=== PATIENT | male | born 1995 | race Caucasian/White ===

== ENCOUNTER 2021-05-02 15:37 | Outpatient (CLI) | payer BC, SELFPAY ==
--- NOTE | ~2021-05-02 | US_ITS ---
EXAMINATION: US venous doppler [facility] DATE: 05/02/2021 16:25 INDICATION: Left lower limb swelling and numbness TECHNIQUE: La scale images without and with compression and Doppler images of the left lower extrem ity veins were obtained. COMPARISON: None FINDINGS: The left common femoral vein, profunda femoral vein, femoral vein, popliteal vein, peroneal trunk, posterior tibial veins, and greater saphenous vein are patent. IMPRESSION: 1. Patent left lower extremity veins. No evidence of deep venous thrombosis. Reviewed, dictated and finalized at location A.
== END 2021-05-02 15:38 | disposition home or self-care (01) ==
LOC: ANHIMG 15:41
DX: M79.89 Other specified soft tissue disorders (principal)
CPT/HCPCS: 93971

== ENCOUNTER 2021-05-11 18:00 | Emergency (ER) | payer BC, SELFPAY ==
[2021-05-11 18:05] VITALS: BP 127/86; PULSE 95; RESP 16; TEMP 37.2; O2SAT 99
--- NOTE | 2021-05-11 18:32 | ED.GENADULT ---
HPI - General Adult General Chief complaint: Extremity Problem,Nontraumatic Stated complaint: Possible DVT L Leg Time Seen by Provider: 05/11/21 18:32 History of Present Illness HPI narrative: Patient is a 25-year-old male who comes to the ED today with concerns for DVT and has left calf. Patient reports that he has had numbness in his left foot and lower leg for the last 6 weeks. Reports that he has no movement in his left toes and left ankle for the last 6 weeks. He is wearing a walking boot. He says he is having muscle wasting of his left calf. He has been seen by several specialists, had numerous MRIs done. He is found to have a contusion on his brain but is still not for sure what is causing his paralysis of his distal left lower extremity. Reports that over the last few days he has had worsening pain in his left calf area and feels like his foot is becoming swollen and more painful. He was recommended to come to the emergency room for DVT rule out by his PCP. No other symptoms or concerns. Related Data Allergies Allergy/AdvReac Type Severity Reaction Status Date / Time Sulfa (Sulfonamide Allergy Unknown Verified 09/29/13 16:08 Antibiotics) No Known Allergies Allergy Verified 12/20/18 11:47 Review of Systems Constitutional: Constitutional: Reports as per HPI, Denies fever(s), Denies night sweats and Denies weakness Cardiovascular: Cardiovascular: Denies chest pain, Denies edema, Denies leg edema, Denies dyspnea and Denies orthopnea Respiratory: Respiratory: Denies cough and Denies dyspnea Gastrointestinal: Gastrointestinal: Denies abdominal pain, Denies constipation, Denies diarrhea, Denies nausea and Denies vomiting Musculoskeletal: Musculoskeletal: Denies abnormal gait, Denies back pain, Denies numbness and Denies tingling Comments: See HPI. Neurologic: Denies Abnormal speech present, Denies abnormal gait, Denies numbness, Denies tingling and Denies weakness Psychiatric: Psychiatric: Denies homicidal ideation and Denies suicidal ideation [facility] Family History Family History (Updated 07/08/14 @ 07:13 by DOCTOR UNKNOWN) Grandparent Hypertension Family history of heart disease in male family member before age 55 Social History Social History Smoking status: Smoker, status unknown Alcohol intake: never Exam Const: General: cooperative, healthy appearing, comfortable, no acute distress, well developed, alert, awake and Physically active Orientation/consciousness: patient oriented x3 HENMT: Head: normal to inspection, normocephalic and atraumatic Ears: external ears normal General nose exam: Normal external nose present Eyes: Pupils: Equal, round and reactive pupils present EOM: EOMs intact bilaterally Neck: Neck: normal visual inspection Chest: Chest palpation & inspection: normal inspection of the chest and no tenderness Resp: Effort & Inspection: normal respiratory effort and able to speak in complete sentences Auscultation: clear to auscultation bilaterally Cardio: Rate: regular rate Rhythm: regular rhythm GI: Inspection: normal to inspection GI Palp: No abdominal tenderness : General: Yes no CVA tenderness Back/Spine/Pelvis: Back: no CVA tenderness Skin: General skin exam: normal color and no rashes or lesions noted Lesions: no lesions Other: Left lower extremity is normal temperature to touch. No overlying skin changes. Neuro: General: patient oriented x3, No no focal motor deficits (Focal deficits/paralysis of left ankle and foot.), CN's II-XI intact bilaterally and other ( significantly reduced sensation over left lower extremity distal to knee) Cranial nerves: Yes Equal, round and reactive pupils present Cognition (Neuro): normal cognition Speech: No Abnormal speech present Extrem: General: normal to inspection and full ROM Other: Tender to palpate over left calf and posterior left knee. Trace nonpitting edema in left foot. Muscle atrophy of the left calf compare
[2021-05-11 19:42] LABS: D Dimer 0.27 ug/mL (<0.48)
== END 2021-05-11 20:14 | disposition home or self-care (01) ==
PROVIDERS: Physician Assistant Medical; Emergency Provider Emergency Medicine; PCP Physician Assistant
DX: M79.662 Pain in left lower leg (principal)
CPT/HCPCS: 36415; 85380; 99283

== ENCOUNTER 2021-06-27 11:00 | Outpatient (RCR) | payer BC, SELFPAY ==
--- NOTE | 2021-05-03 14:57 | PTOPEVAL ---
Thank you for referring Abelardo Giron to [facility].? The patient is scheduled to be seen for therapy? 1-2 x/week for 8 weeks. Please review, sign, date and return this plan of care ROM. I agree with and certify that the following plan of care is medically necessary. 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 noted to have entraped peroneal nerve on left Subjective Information He was staying in a hotel. He Query Text:As Reported By Patient/ starting experiencing sickness Family with in vomiting 6 times. He lost his job and became very stressed. He woke up with left foot asleep with progression of numbness with pins/needles that progressed from foot to upper leg. He went to hospital due to weakness. He was given a walking boot due to weakness. He has been in/out of hospitals, doctors and testing since February. He states he has not moved his left ankle since February. He c/ o increased pain of right LE. Pain Assessment Timing of Pain Assessment Timing of Pain Assessment Assessment Pain Scale Pain Scale Used Numeric (1 - 10) Self Report Pain Assessment Left Leg(s) Reported Pain Level 8 Pain Description Numbness Pain Frequency Continuous Lowest Pain Intensity 8 Greatest Pain Intensity 9 Pain Aggravating Factors ADL's,Palpation,Prolonged Position,Sitting,Walking, Weight Bearing/Standing Pain Score Pain Score 8: Self Report Interventions Used Interventions Used By Clinicians Education Lower Extremity Muscle Strength Testing General Lower Extremity Strength Gross Lower Extremity Strength right hip ext: 3/5, hip abd: 3 /5 Hip Strength Left Hip Flexion Strength 4+ Good + Hip Extension Strength 2+ Poor + Hip Abduction Strength 2 Poor Hip Adduction Strength 2+ Poor + Knee Strength Left Knee Flexion Strength 1 Trace Knee Extension Strength
--- NOTE | 2021-05-22 12:25 | PCPTNOTE ---
Patient did not show up for scheduled appointment this date. Attempted to call pt, but number on file is not a working number.
--- NOTE | 2021-05-29 12:01 | PCPTNOTE ---
Patient called & cancelled scheduled appointment this date due to unknown reason.
--- NOTE | 2021-06-05 10:01 | PCPTNOTE ---
Patient called & cancelled scheduled appointment this date due to no reason provided.
--- NOTE | 2021-06-09 12:28 | PCPTNOTE ---
Patient did not show up for scheduled appointment this date. Attempted to call pt, but his phone is not activated. This is his 2nd NS, but 4th missed visit. Will plan to DC per policy.
--- NOTE | 2021-06-27 12:12 | PTOPEVAL ---
Physical Therapy Discharge Note Thank you for referring Abelardo Giron to [facility] [place]Note 2[place]?He has been seen for 4 therapy visits from 05/03/21 to 06/27/21 with 4 no show/cancelled visits. He has been provided with a new medical condition which will require surgery in 2 weeks. His has a brace for his leg and demonstrates indep with a HEP. No additional skilled therapy services required at this time due to surgery planned. Please review, sign, date and return this discharge summary ROM. I agree with and certify that the following plan of care is medically necessary. 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 Surgery planned for 07/11/21. 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 He is performing ankle exerises and walking as tolerated. Pain Assessment Left Leg(s) Reported Pain Level 5 Pain Description Aching,Numbness,Sharp,Shooting Pain Frequency Continuous Greatest Pain Intensity 6 Lower Extremity Range of Motion General Lower Extremity Range of Motion Gross Lower Extremity Range of Motion passive left ankle DF: neutral Comments Lower Extremity Muscle Strength Testing Hip Strength Left Hip Flexion Strength 4+ Good + Hip Extension Strength 3+ Fair + Hip Abduction Strength 3- Fair - Hip Adduction Strength 3- Fair - Knee Strength Left Knee Flexion Strength 4- Good - Knee Extension Strength 4 Good Ankle Strength Left Ankle Dorsiflexion Strength 0 Zero Ankle Plantarflexion Strength 2- Poor - Ankle Eversion Strength 1 Trace Ankle Inversion Strength 1 Trace Toe Strength Comments great toe ext: 1/5 toe flex: 2-/5 Gait Assessment Gait Pattern Assessment Gait Pattern Steppage Gait,Trendelenburg Gait Gait Pattern Observed Decreased Stride Length - Right,No Heel Strike
== END 2021-06-27 16:09 | disposition home or self-care (01) ==
LOC: ANHPT 11:00
DX: M62.50 Muscle wasting and atrophy, not elsewhere classified, unspecified site (principal); M21.372 Foot drop, left foot; R29.898 Other symptoms and signs involving the musculoskeletal system
CPT/HCPCS: 97110; 97112; 97163

== ENCOUNTER → 2021-07-08 01:09 | Outpatient (CLI) | payer BC, SELFPAY ==
[2021-07-08 22:46] LABS: SARS-CoV-2 RNA PCR Negative
== END ==
PROVIDERS: PCP Physician Assistant
DX: Z01.812 Encounter for preprocedural laboratory examination (principal); Z20.822 Contact with and (suspected) exposure to COVID-19
CPT/HCPCS: C9803; U0003; U0005

== ENCOUNTER 2021-07-21 08:04 | Emergency (ER) | payer BC, SELFPAY ==
--- NOTE | ~2021-07-21 | CT_ITS ---
EXAMINATION: CT brain wo con DATE: 07/21/2021 09:31 INDICATION: Headache. TECHNIQUE: Computed tomography (CT) of the head was performed without intravenous contrast. The mA wa s adjusted according to patient size. Iterative reconstruction technique was employed. The dose-lengt h product was 605.33 mGy-cm. COMPARISON: None FINDINGS: There are changes of left frontal craniotomy. There is extra-axial fluid and a small focus of gas deep to the craniotomy with maximum thickness of 6 mm. There is soft tissue swelling overlying the craniotomy. There is subacute versus chronic encephalomalacia in left frontal lobe deep to the c raniotomy. There is no intracranial hemorrhage, acute infarction, or abnormal intracranial mass lesio n. The ventricles are normal in size. The paranasal sinuses are clear. The mastoid air cells are norm al. The orbits are normal. IMPRESSION: 1. 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 2. Recent left frontal craniotomy with extra-axial fluid and a small focus of gas deep to the craniot paloma with maximum thickness of 6 mm, which may be the normal postoperative appearance. Reviewed, dictated and finalized at location A. IMPRESSION: 1. 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 2. Recent left frontal craniotomy with extra-axial fluid and a small focus of g as deep to the craniotomy with maximum thickness of 6 mm, which may be the norm al postoperative appearance.
[2021-07-21 08:19] VITALS: BP 126/79; PULSE 96; RESP 18; TEMP 36.7; O2SAT 96
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
--- NOTE | 2021-07-21 08:58 | PC.NURSE ---
Pt mother Mary arrived to ED. Mother states that pt has had a hx of drug abuse in past and hx of being violent. Pts mother states that last week pt took prescribed mediations at home and went into respiratory distress and had CPR preformed and given Narcan. Pts mother states that Drs said that the medications that pt is taking it made his breathing decline. Pts mother has since taken medications and locked them up. This is what pts mother thinks pt was trying to get at this morning. Pts mother can be reached at [phone]
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
[2021-07-21 09:36] LABS: Add Urine Microscopic? NO; Appearance Urine Clear (Clear); Bilirubin Urine Negative (Negative); Blood Urine Negative (Negative); Color Urine Yellow (Yellow); Glucose Urine UA Negative (Negative); Ketones Urine Negative (Negative); Leukocyte Esterase Ur Negative LEU/UL (Negative); Nitrate Urine Negative (Negative); Protein Urine Negative (Negative); Specific Grav Ur 1.019 (1.001-1.035); Urobilinogen Urine Negative mg/dL (<2.0)
[2021-07-21 09:41] LABS: Basophils Absolute Auto 0.1 K/mm3 (0.0-0.1); Basophils Percent Auto 0.5 % (0.2-1.2); Eosinophils Absolute Auto 0.4 K/mm3 (0-0.3); Eosinophils Percent Auto 2.4 % (0-4.4); Hematocrit 41.1 % (42.0-52.0); Hemoglobin 13.8 g/dL (14.0-18.0); Immature Granulocyte Absolute 0.41 K/mm3 (0.00-0.031); Immature Granulocyte Percent A 2.4 % (0-0.5); Lymphocytes Absolute Auto 2.19 K/mm3 (0.9-3.2); Lymphocytes Percent Auto 12.6 % (18.3-44.2); Mean Corpuscular HGB Conc 33.6 g/dl (32-36); Mean Corpuscular Hemoglobin 31.7 pg (26-34); Mean Corpuscular Volume 94.3 fl (80-100); Mean Platelet Volume 8.9 fl (7.4-10.4); Monocytes Percent Auto 11.8 % (2.6-8.5); Neutrophils Absolute Auto 12.2 K/mm3 (1.3-6.7); Neutrophils Percent Auto 70.3 % (45.5-73.1); Platelet Count Result 363 k/mm3 (150-375); Red Blood Count 4.36 M/mm3 (4.6-6.20); Red Cell Distribution Width 12.5 % (11.5-14.5); White Blood Count 17.3 K/mm3 (4.5-10.0)
[2021-07-21 09:54] LABS: Alanine Aminotransferase 45 U/L (4-50); Albumin Level 3.8 g/dL (3.5-5.1); Alkaline Phosphatase 83 U/L (38-126); Anion Gap 3 mmol/L (8-16); Aspartate Amino Transferase 44 U/L (17-59); Bilirubin,Total 0.1 mg/dL (0.2-1.3); Blood Urea Nitrogen 19 mg/dL (9-20); Calcium 9.1 mg/dL (8.4-10.2); Carbon Dioxide 30 mmol/L (22-30); Chloride 105 mmol/L (98-107); Estimated CRCL calculation 129 ml/min; Estimated Glomerular Filt Rate > 60; Glucose 112 mg/dL (65-110); Potassium 4.5 mmol/L (3.4-5.0); Sodium 138 mmol/L (137-145)
[2021-07-21 09:55] LABS: Ethanol < 10 mg/dL (<10)
[2021-07-21 10:07] LABS: Amphetamine Screen Urine Negative (Negative); Barbiturate Screen Urine Negative (Negative); Benzodiazepines Screen Urine Negative (Negative); Cannabinoid Screen Urine Positive (Negative); Cocaine Screen Urine Negative (Negative); Methadone Screen Urine Negative (Negative); Opiate Screen Urine Positive (Negative); Phencyclidine Screen Urine Negative (Negative)
[2021-07-21 10:23] LABS: EDCOVIDSCREEN Negative (Negative)
[2021-07-21] MEDS: HYDROcodone/acetaminophen (*CRX) 5-325 MG TABLET 2 TAB PO (10:40)
--- NOTE | 2021-07-21 10:46 | PC.NURSE ---
Pt in room yelling at this RN because he is needing his pain meds and it has taken over an hour what the fuck is this [employer] ? Pt given his medication and water
--- NOTE | 2021-07-21 11:25 | PC.NURSE ---
Pts mother called and states that she was talking to pts expressive art therapist Dr. Archana Wong @ [phone] Wong if pt can be transferred to her facility they will take pt and keep him for treatment and physiatric help. Will inform of this.
--- NOTE | 2021-07-21 12:28 | PC.NURSE ---
Pt is medically cleared. Crisis called and spoke with Brooke. Brooke states she will contact Delisa and have her come out.
--- NOTE | 2021-07-21 12:35 | PC.NURSE ---
Per Dr. Fuentes, Dr Archana Wong has only spoken with pt 1 time. She had no idea how her name was mentioned today. Dr. Wong states she never said to have pt transferred to [place].
[2021-07-21] MEDS: LORazepam (*CRX) 1 MG TABLET PO (14:39)
--- NOTE | 2021-07-21 15:09 | PC.NURSE ---
Called to inform pts mother Mary that pt did not meet qualifications to be placed somewhere and that he will need to be picked up. Mother states i will need a minute, I will call you back . Informed the charge nurse of this.
== END 2021-07-21 15:21 | disposition home or self-care (01) ==
PROVIDERS: Emergency Provider Emergency Medicine
DX: F32.9 Major depressive disorder, single episode, unspecified (principal); F41.9 Anxiety disorder, unspecified; Z98.890 Other specified postprocedural states; Z20.822 Contact with and (suspected) exposure to COVID-19
CPT/HCPCS: 36415; 70450; 80053; 80307; 81003; 84443; 85025; 87426; 99284; A9270; C9803

== ENCOUNTER 2021-08-24 08:24 | Outpatient (CLI) | payer BC, SELFPAY ==
--- NOTE | ~2021-08-24 | MR_ITS ---
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 7 weeks postop with persistent pain. TECHNIQUE: Magnetic resonance imaging (MRI) of the brain/brain stem obtained without contrast. Sagit soren T1, axial diffusion, gradient echo (T2*), T1, T2, FLAIR sequences obtained. Patient was then inj ected with 14 cc intravenous Multihance contrast. Axial and coronal postcontrast T1 weighted sequence s obtained. Correlation is made to head CT 07/21/2011. FINDINGS: Meghan have likely been removed overlying the left frontal craniotomy. There is presumed s urgical defect in the left frontal lobe which is T2 hyperintense, does not demonstrate restricted dif fusion. The surrounding margins of the surgical bed is T1 hyperintense, gradient echo hypointense con sistent with surgical postoperative margin. This also demonstrates enhancement. No discrete nodularit y to this enhancing region. There is mild vasogenic edema within the white matter surrounding this. Otherwise, normal brain signal intensity. Flow voids are seen in the cerebral arteries on the T2 weig hted sequences consistent with their expected patency. No obstructive hydrocephalus or extra-axial co llections. There is mild to moderate left maxillary sinus mucoperiosteal thickening. No acute infarct ion. IMPRESSION: Left frontal craniotomy, underlying encephalomalacia with expected postoperative appearan ce. No focal enhancing nodularity along the resection bed. Follow-up as indicated clinically. Reviewed, dictated and finalized at location A. IMPRESSION: Left frontal craniotomy, underlying encephalomalacia with expected postoperative appearance. No focal enhancing nodularity along the resection bed . Follow-up as indicated clinically.
[2021-08-24 09:01] LABS: Estimated Glomerular Filt Rate > 60
== END 2021-08-24 08:25 | disposition home or self-care (01) ==
LOC: ANHIMG 08:25
PROVIDERS: PCP Physician Assistant; Visit Provider Physician Assistant
DX: C71.1 Malignant neoplasm of frontal lobe (principal); Z98.890 Other specified postprocedural states
CPT/HCPCS: 70553; A9577

== ENCOUNTER 2021-09-20 15:00 | Outpatient (RCR) | payer BC, SELFPAY ==
--- NOTE | 2021-08-16 13:41 | OTOPEVAL ---
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 OT evaluation shows intact and symmetrical UE strength and coordination. Visual assessment is WNL. He is currently independent with ADLs. No further skilled OT is indicated at this time. Thank you for referring Abelardo Giron to [facility].? Please review, sign, date and return this D/C Note ROM. I agree with and certify that the following plan of care is medically necessary. Referring Physician Date Referring Provider: AMISH GallardoOT Outpatient Evaluation Start: 08/16/21 12:27 Therapy Assessment Status Assessment Status Assessment Status Evaluation Outpatient Past Medical History Neurological History Hx Other Neurological Disorders Yes: brain tumor s/p resection Cardiovascular History Hx Cardiac Disorders No Significant History Respiratory History Hx Respiratory Disorders No Significant History Gastrointestinal History Hx Gastrointestinal Disorders No Significant History Genitourinary History Hx Genitourinary Disorders No Significant History Musculoskeletal History Hx Musculoskeletal Disorders No Significant History Hematological History Hx Hematological Disorders No Significant History Endocrine History Hx Endocrine Disorders No Significant History HEENT History Hx HEENT Disorders No Significant History Integumentary History Hx Skin Disorders No Significant History Reproductive History Hx Reproductive Disorders No Significant History Psychosocial History Hx Anxiety Yes Hx Depression Yes Pain History History of Any Previous or Ongoing No Significant History Instance of Pain Anesthesia History Hx Anesthesia Reactions No Significant History Other History Hx Cancer Yes Evaluation Information Problem Diagnosis Brain lesion Additional Evaluation Detail 07/11/21 - Resection of malignant neoplasm of the left frontal lobe Subjective Information Patient reports difficulties Query Text:As Reported By Patient/ with left leg weakness that Family began at the beginning of summer when he had a 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 He reports his neurologist doesn't think the brain tumor is related to the LE weakness, but imaging and testing has been unable to properly diagnose. He is to be
--- NOTE | 2021-08-17 16:14 | PTOPEVAL ---
Thank you for referring Abelardo Giron to [facility].? The patient is scheduled to be seen for therapy? 1 x/week for 4 weeks. Please review, sign, date and return this plan of care ROM. I agree with and certify that the following plan of care is medically necessary. Referring Physician Date Referring Provider: Idalmis Jamison NP Outpatient Past Medical History Past Medical History Source of Past Medical History Patient Neurological History Hx Seizures Yes Hx Other Neurological Disorders Yes: brain tumor s/p resection 07/11/21 Psychosocial History Hx Anxiety Yes Hx Depression Yes Hx Cancer Yes Evaluation Information Diagnosis Brain lesion Additional Evaluation Detail 07/11/21 - Resection of malignant neoplasm of the left frontal lobe He is to begin radiation therapy in a few weeks. Pt has been having seizures since his sugery. he wears 1.5# on left LE. Pt is applying for disability due to limitations. Subjective Information Patient reports difficulties Query Text:As Reported By Patient/ with left leg weakness that Family began at the beginning of summer when he had a particularly hard day at work. 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 He reports his neurologist doesn't think the brain tumor is related to the LE weakness, but imaging and testing has been unable to properly diagnose. He reports continued LE weakness and balance issues that seem to be greater since surgery. Reports 5-6 falls since surgery. He is not consistently wearing his brace . He reports continued nerve symptoms of left LE. Pain Assessment Head Reported Pain Level 6 Pain Description Aching Left Knee(s) Reported Pain Level 6 Pain Description Tightness Cervical and Lumbar ROM Lumbar ROM Lumbar Flexion Active Mid Nava:Hands to:
--- NOTE | 2021-08-23 13:08 | PCPTNOTE ---
Patient did not show up for scheduled appointment this date. Called & spoke with Abelardo, he stated he thought his appointment was tomorrow. patient was scheduled for 09/01/21.
--- NOTE | 2021-09-12 11:22 | PCPTNOTE ---
Patient did not show up for scheduled appointment this date. Called and left message on VM. No additional visits scheduled. Will plan to DC if he does not call this week for a f/u visit.
--- NOTE | 2021-09-20 16:12 | PTOPEVAL ---
Physical therapy discharge summary Thank you for referring Abelardo Giron to [facility] See information below for updated objective information and summary of progress. Will DC skilled therapy services at this time. Please review, sign, date and return this discharge summary ROM. I agree with and certify that the following plan of care is medically necessary. 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 Pt has been having seizures since his sugery. he wears 1.5# on left LE. Pt is applying for disability due to limitations. Subjective Information Patient reports continued Query Text:As Reported By Patient/ weakness of left LE with Family muscle mass of left LE. He is wearing his AFO on left LE, but does not feel like it is fitting properly. Reports had 1 fall since starting therapy. He tripped over a toy he did not feel on the ground. He is wearing the brace other than sleeping. He has been working on his HEP and balance activities. He does feel his balance is better. HE continues to have nerve pain from thigh to foot region . Pain Assessment Head Reported Pain Level 5 Pain Description Aching Left Knee(s) Reported Pain Level 5 Lowest Pain Intensity 5 Greatest Pain Intensity 5 Lower Extremity Muscle Strength Testing Hip Strength Left Hip Flexion Strength 4 Good Hip Extension Strength 4 Good Hip Abduction Strength 3 Fair Knee Strength Left Knee Flexion Strength 4- Good - Knee Extension Strength 5 Normal Ankle Strength Left Ankle Dorsiflexion Strength 0 Zero Ankle Plantarflexion Strength 2- Poor - Ankle Eversion Strength 0 Zero Ankle Inversion Strength 1 Trace Toe Strength Comments toe flex ext 2-/5 Balance Assessment Samaniego Balance Assessment SAMANIEGO Balance Evaluation Total Score (50/56 points) Comments schafer
== END 2021-09-21 09:34 | disposition home or self-care (01) ==
LOC: ANHPT 15:00
PROVIDERS: PCP Physician Assistant
DX: R29.898 Other symptoms and signs involving the musculoskeletal system (principal); G93.9 Disorder of brain, unspecified
CPT/HCPCS: 97110; 97112; 97116; 97163; 97166

== ENCOUNTER 2021-10-02 10:24 | Outpatient (CLI) | payer BC, SELFPAY ==
--- NOTE | 2021-10-02 12:12 | P.NEURO_ITS ---
Neurology EEG Report General Information Date of Study: 10/02/21 TEST EEG DIAGNOSIS transient alteration in alertness CONDITION OF RECORDING awake drowsy and sleep EEG NUMBER [id number] CLINICAL HISTORY patient reported he had a brain tumor removed of frontal lobe about 3 months ago he has been experiencing episodes of spacing out for a few seconds at a time and 1 episode last week of being unable to talk or move that lasted for about 2 minutes EEG DESCRIPTION basic resting occipital frequency consists of large amount of well-organized medium voltage 10 to 11 hertz per 2nd alpha admixed with minimal amount of low- voltage 15 to 18 hertz per 2nd beta. Bilateral symmetrical sleep activity seen during sleep. Intermittent medium voltage 5 to 7 hertz per 2nd theta activity seen towards the latter portion of the tracing. Photic stimulation produced normal drive. Hyperventilation not done. IMPRESSION Only minimally abnormal record due to the presence of intermittent theta and delta activity noted posteriorly during sleep. This abnormality could be suggestive of underlying organic a metabolic encephalopathy her focal structural lesion but there is no evidence of seizure discharge throughout the tracing
== END 2021-10-02 10:25 | disposition home or self-care (01) ==
LOC: ANHNEURO 10:30
PROVIDERS: PCP Physician Assistant
DX: R40.4 Transient alteration of awareness (principal); R94.01 Abnormal electroencephalogram [EEG]
CPT/HCPCS: 95816

== ENCOUNTER 2021-10-10 12:38 | Outpatient (CLI) | payer BC, SELFPAY ==
--- NOTE | ~2021-10-10 | MR_ITS ---
EXAMINATION: MR femur LT wo/w con DATE: 10/10/2021 14:08 INDICATION: Left leg weakness TECHNIQUE: Magnetic resonance imaging (MRI) of the left thigh/femur was performed without intravenous contrast. Sequences included axial, sagittal and coronal T1-weighted FSE and fluid sensitive FSE STI R, axial T1-weighted FS FSE and post contrast axial and coronal T1-weighted FS FSE were also obtained . The contralateral right thigh is included on the coronal images. COMPARISON: None. FINDINGS: There is increased muscle T2 signal involving the biceps femoris, semitendinosus, semimembranosus mus cles and geographic region (hamstring portion) of the posterior adductor mallory muscle. This correspo nds to the innervation distribution of the tibial portion of the sciatic nerve. No associated fatty a trophy. Remaining musculature is normal. Normal bone marrow signal throughout. No left hip or knee aruna int effusion. The tibial and fibular components of the sciatic nerve can be visualized as separate st ructures proximal to the level of the ischial tuberosity above which visualization is limited by fiel d artifact at the margin of the field of imaging. No abnormalities identified along the course of the nerves. The vasculature of the thighs appear normal and normally opacified with contrast. No abnorma lly enhancing masses or lesions identified. IMPRESSION: 1. 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 Reviewed, dictated and finalized at location A. AND TRIMMER IMPRESSION: 1. Diffuse increased muscular signal of the semitendinosus, semimembranosus, bi ceps humerus and hamstring portion of the abductor mallory muscle suggesting toro ropathy in the tibial portion of the sciatic nerve which is of indeterminate et iology.
[2021-10-10 13:11] LABS: Estimated Glomerular Filt Rate > 60
== END 2021-10-10 12:39 | disposition home or self-care (01) ==
PROVIDERS: PCP Physician Assistant
DX: M62.50 Muscle wasting and atrophy, not elsewhere classified, unspecified site (principal); R29.898 Other symptoms and signs involving the musculoskeletal system; M21.372 Foot drop, left foot; R93.7 Abnormal findings on diagnostic imaging of other parts of musculoskeletal system
CPT/HCPCS: 73720; A9577

== ENCOUNTER 2021-11-30 13:40 | Outpatient (CLI) | payer BC, SELFPAY ==
[2021-11-30 14:16] LABS: Basophils Absolute Auto 0.1 K/mm3 (0.0-0.1); Basophils Percent Auto 1.3 % (0.2-1.2); Eosinophils Absolute Auto 0.4 K/mm3 (0-0.3); Eosinophils Percent Auto 4.4 % (0-4.4); Hematocrit 46.8 % (42.0-52.0); Hemoglobin 16.2 g/dL (14.0-18.0); Immature Granulocyte Absolute 0.01 K/mm3 (0.00-0.031); Immature Granulocyte Percent A 0.1 % (0-0.5); Lymphocytes Absolute Auto 3.21 K/mm3 (0.9-3.2); Lymphocytes Percent Auto 34.4 % (18.3-44.2); Mean Corpuscular HGB Conc 34.6 g/dl (32-36); Mean Corpuscular Hemoglobin 31.6 pg (26-34); Mean Corpuscular Volume 91.2 fl (80-100); Mean Platelet Volume 9.5 fl (7.4-10.4); Monocytes Absolute Auto 0.7 K/mm3 (0.1-0.6); Monocytes Percent Auto 7.4 % (2.6-8.5); Neutrophils Absolute Auto 4.9 K/mm3 (1.3-6.7); Neutrophils Percent Auto 52.4 % (45.5-73.1); Platelet Count Result 311 k/mm3 (150-375); Red Blood Count 5.13 M/mm3 (4.6-6.20); Red Cell Distribution Width 11.8 % (11.5-14.5); White Blood Count 9.3 K/mm3 (4.5-10.0)
[2021-11-30 21:03] LABS: IFOB Positive Control Positive; Immunochemical Fecal Occult Bl Negative (N)
== END 2021-11-30 13:41 | disposition home or self-care (01) ==
LOC: ANHLAB 13:46
PROVIDERS: PCP Physician Assistant
DX: R10.84 Generalized abdominal pain (principal); R19.5 Other fecal abnormalities
CPT/HCPCS: 36415; 82274; 85025

== ENCOUNTER 2021-12-01 12:43 | Outpatient (CLI) | payer BC, SELFPAY ==
--- NOTE | ~2021-12-01 | MR_ITS ---
EXAMINATION: MR brain/brain stem wo/w con EXAM DATE: 12/01/2021 14:10 INDICATION: Oligodendroglioma. TECHNIQUE: Magnetic resonance imaging (MRI) of the brain/brain stem obtained without contrast. Sagit soren T1, axial diffusion, gradient echo (T2*), T1, T2, FLAIR sequences obtained. Patient was then inj ected with 14 cc intravenous Multihance contrast. Axial and coronal postcontrast T1 weighted sequence s obtained. Comparison is made to prior examination from 08/24/2021. FINDINGS: Left frontal craniotomy. There is presumed surgical defect in the left frontal lobe which i s T2 hyperintense, does not demonstrate restricted diffusion. The surrounding margins of the surgical bed is T1 hyperintense, gradient echo hypointense consistent with surgical postoperative margin with mild surrounding vasogenic edema. This also demonstrates enhancement without discrete nodularity. St able appearance. Otherwise, normal brain signal intensity. Flow voids are seen in the cerebral arteries on the T2 weig hted sequences consistent with their expected patency. No obstructive hydrocephalus or extra-axial co llections. There is mild to moderate left maxillary sinus mucoperiosteal thickening. No acute infarct ion. IMPRESSION: Stable left frontal lobe surgical resection site appearance. Reviewed, dictated and finalized at location B. ER [place]
[2021-12-01 13:44] LABS: Estimated Glomerular Filt Rate > 60
== END 2021-12-01 12:44 | disposition home or self-care (01) ==
LOC: ANHIMG 12:44
PROVIDERS: PCP Physician Assistant; Visit Provider Internal Medicine
DX: C71.9 Malignant neoplasm of brain, unspecified (principal); Z98.890 Other specified postprocedural states
CPT/HCPCS: 70553; A9577

== ENCOUNTER 2021-12-29 14:11 | Outpatient (CLI) | payer BC, SELFPAY ==
[2021-12-29 15:11] LABS: Basophils Absolute Auto 0.1 K/mm3 (0.0-0.1); Basophils Percent Auto 1.2 % (0.2-1.2); Eosinophils Absolute Auto 0.3 K/mm3 (0-0.3); Eosinophils Percent Auto 4.2 % (0-4.4); Hematocrit 44.1 % (42.0-52.0); Hemoglobin 15.1 g/dL (14.0-18.0); Immature Granulocyte Absolute 0.02 K/mm3 (0.00-0.031); Immature Granulocyte Percent A 0.2 % (0-0.5); Lymphocytes Absolute Auto 2.13 K/mm3 (0.9-3.2); Lymphocytes Percent Auto 26.1 % (18.3-44.2); Mean Corpuscular HGB Conc 34.2 g/dl (32-36); Mean Corpuscular Hemoglobin 31.5 pg (26-34); Mean Corpuscular Volume 92.1 fl (80-100); Mean Platelet Volume 9.4 fl (7.4-10.4); Monocytes Absolute Auto 0.8 K/mm3 (0.1-0.6); Monocytes Percent Auto 9.3 % (2.6-8.5); Neutrophils Absolute Auto 4.8 K/mm3 (1.3-6.7); Platelet Count Result 329 k/mm3 (150-375); Red Blood Count 4.79 M/mm3 (4.6-6.20); Red Cell Distribution Width 12.2 % (11.5-14.5); White Blood Count 8.2 K/mm3 (4.5-10.0)
[2021-12-29 15:22] LABS: Alanine Aminotransferase 22 U/L (4-50); Albumin Level 4.6 g/dL (3.5-5.1); Alkaline Phosphatase 117 U/L (38-126); Anion Gap 4 mmol/L (8-16); Aspartate Amino Transferase 27 U/L (17-59); Bilirubin,Total 0.9 mg/dL (0.2-1.3); Blood Urea Nitrogen 10 mg/dL (9-20); Calcium 9.6 mg/dL (8.4-10.2); Carbon Dioxide 33 mmol/L (22-30); Chloride 101 mmol/L (98-107); Estimated Glomerular Filt Rate > 60; Glucose 86 mg/dL (65-110); Sodium 138 mmol/L (137-145)
== END 2021-12-29 14:12 | disposition home or self-care (01) ==
PROVIDERS: PCP Physician Assistant
DX: Z01.818 Encounter for other preprocedural examination (principal); R29.898 Other symptoms and signs involving the musculoskeletal system; M62.562 Muscle wasting and atrophy, not elsewhere classified, left lower leg; R20.2 Paresthesia of skin
CPT/HCPCS: 36415; 80053; 85025

== ENCOUNTER 2022-02-20 10:38 | Outpatient (CLI) | payer BC, SELFPAY ==
--- NOTE | ~2022-02-20 | MR_ITS ---
EXAMINATION: MR brain/brain stem wo/w con DATE: 02/20/2022 11:41 INDICATION: Oligodendroglioma. TECHNIQUE: Magnetic resonance imaging (MRI) of the brain and brainstem was performed without and with 12 mL MultiHance intravenous contrast. Sequences included sagittal and axial T1-weighted FSE, axial diffusion-weighted FS EPI, axial T2*-weighted GRE, axial T2-weighted FLAIR Propeller, and axial T2-we ighted Propeller. Postcontrast sequences included axial and coronal T1-weighted FSE and axial 3-D T1 weighted DUARTE. Apparent diffusion coefficient (ADC) maps were created. COMPARISON: Brain MRI 12/01/2021, 08/24/21, head CT 07/21/2021 FINDINGS: Again seen are changes of resection in left frontal lobe with old blood products. There is increased T2-weighted signal intensity around the resection cavity. No abnormal contrast enhancement. There is no acute ischemic infarct. The ventricles are normal in size. The orbits are normal. The pa ranasal sinuses are clear. The mastoid air cells are normal. IMPRESSION: 1. Stable resection site in left frontal lobe. No specific evidence of recurrent or residual tumor. Reviewed, dictated and finalized at location A. IMPRESSION: 1. Stable resection site in left frontal lobe. No specific evidence of recurren t or residual tumor.
[2022-02-20 11:09] LABS: Estimated Glomerular Filt Rate > 60
== END 2022-02-20 10:39 | disposition home or self-care (01) ==
PROVIDERS: PCP Physician Assistant; Visit Provider Internal Medicine
DX: C71.9 Malignant neoplasm of brain, unspecified (principal)
CPT/HCPCS: 70553; A9577

== ENCOUNTER 2024-02-02 22:11 | Emergency (ER) | payer MEDICARE, MEDICAID, SELFPAY ==
[2024-02-02 22:21] VITALS: BP 137/80; PULSE 106; RESP 17; TEMP 36.8; O2SAT 97
[2024-02-02 22:44] LABS: Alanine Aminotransferase 30 U/L (6-50); Albumin Level 4.9 g/dL (3.5-5.1); Alkaline Phosphatase 84 U/L (38-126); Anion Gap 12 mmol/L (8-16); Aspartate Amino Transferase 40 U/L (17-59); Bilirubin,Total 0.5 mg/dL (0.2-1.3); Blood Urea Nitrogen 7 mg/dL (9-20); Calcium 9.5 mg/dL (8.4-10.2); Carbon Dioxide 25 mmol/L (22-30); Chloride 106 mmol/L (98-107); Estimated Glomerular Filt Rate > 60; Glucose 96 mg/dL (65-110); Potassium 3.6 mmol/L (3.4-5.0); Sodium 143 mmol/L (137-145)
--- NOTE | 2024-02-02 22:46 | PC.NURSE ---
Pt screaming from room to young pt across the sorto to shut the fuck up . Pt also screaming he is about to lose it on the workers here. security called by WILFRID Tay.
[2024-02-02 22:49] LABS: Basophils Absolute Auto 0.1 K/mm3 (0.0-0.1); Basophils Percent Auto 0.5 % (0.2-1.2); Eosinophils Percent Auto 0.2 % (0-4.4); Hematocrit 45.2 % (42.0-52.0); Immature Granulocyte Absolute 0.07 K/mm3 (0.00-0.031); Immature Granulocyte Percent A 0.5 % (0-0.5); Lymphocytes Absolute Auto 1.49 K/mm3 (0.9-3.2); Lymphocytes Percent Auto 11.5 % (18.3-44.2); Mean Corpuscular HGB Conc 33.2 g/dl (32-36); Mean Corpuscular Hemoglobin 31.8 pg (26-34); Monocytes Absolute Auto 1.1 K/mm3 (0.1-0.6); Monocytes Percent Auto 8.3 % (2.6-8.5); Neutrophils Absolute Auto 10.2 K/mm3 (1.3-6.7); Platelet Count Result 375 k/mm3 (150-375); Red Blood Count 4.71 M/mm3 (4.6-6.20); Red Cell Distribution Width 13.8 % (11.5-14.5); White Blood Count 12.9 K/mm3 (4.5-10.0)
[2024-02-02 22:50] LABS: Bacteria Urine None Seen /hpf; Non Pathogenic Casts 0-2; RBC Urine 0-2 /hpf (0-2); Squamous Epithelial Cell Urine None Seen /hpf (Few); WBC Urine 0-5 /hpf (0-3)
[2024-02-02] MEDS: LORazepam (*CRX) 1 MG TABLET PO (23:02)
--- NOTE | 2024-02-02 23:03 | PC.NURSE ---
Pt resting comfortably on cot at this time. security outside of room.
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
[2024-02-02 23:08] LABS: Add Urine Microscopic? YES; Appearance Urine Clear (Clear); Color Urine Yellow (Yellow)
--- NOTE | 2024-02-02 23:08 | ED.PSYCH ---
HPI - Psych General Chief Complaint: Psychiatric Symptoms <Randi Nguyen PA-C - Last Filed: 02/04/24 09:51> Stated Complaint: SI, Etoh <Randi Nguyen PA-C - Last Filed: 02/04/24 09:51> Time Seen by Provider: 02/02/24 22:22 <Randi Nguyen PA-C - Last Filed: 02/04/24 09:51> Source: patient <MARNI Rivera Last Filed: 02/04/24 09:51> Mode of arrival: EMS <MARNI Rivera Last Filed: 02/04/24 09:51> Limitations: no limitations <MARNI Rivera Last Filed: 02/04/24 09:51> History of Present Illness HPI Narrative: This is a 28 year old male that presents to the ER for suicidal ideation. Reports he is currently going through treatment for recurrence of brain cancer and he has been very stressed about this. Reports he was supposed to be going on vacation to [place] and his mother told him they weren't and this made him very upset. Reports he said he was going to kill himself. He does not have a plan. No previous suicide attempts or psychiatric hospitalizations. Mother reports patient has history of drug abuse. <Randi Nguyen PA-C - Last Filed: 02/04/24 09:51> Related Data Home Medications: Home Medications Medication Instructions Recorded Confirmed escitalopram oxalate 10 mg tablet 10 mg PO DAILY 08/01/21 08/01/21 (Lexapro) gabapentin 600 mg tablet 600 mg PO TID 08/01/21 08/01/21 <MARNI Rivera Last Filed: 02/04/24 09:51> Allergies/Adverse Reactions: Allergies Allergy/AdvReac Type Severity Reaction Status Date / Time Sulfa (Sulfonamide Allergy Unknown Diarrhea Verified 02/02/24 22:31 Antibiotics) tramadol Allergy Unknown Verified 02/02/24 22:31 <MARNI Rivera Last Filed: 02/04/24 09:51> Review of Systems Review of Systems: CONSTITUTIONAL: Denies fever PSYCHIATRIC: Reports anxiety and depression. <Randi Nguyen PA-C - Last Filed: 02/04/24 09:51> All systems reviewed & are unremarkable except as noted in HPI and below <Randi Nguyen PA-C - Last Filed: 02/04/24 09:51> PMFSH Past Medical History Medical History: Medical History (Updated 02/04/24 @ 00:01 by Erasto Calvo) Malignant neoplasm of frontal lobe <Randi Nguyen PA-C - Last Filed: 02/04/24 09:51> Family History Family History: Family History Grandparent Hypertension Family history of heart disease in male family member before age 55 <Randi Nguyen PA-C - Last Filed: 02/04/24 09:51> Social History Social History: Social History (Updated 02/02/24 @ 23:22 by Randi Nguyen PA-C) Smoking packs per day: 1 Smoking cigarettes per day: 20.0 Years smoked: 10 Smoking pack-years: 10.00 Smoking status: Current every day smoker Tobacco type: cigarettes Additional smoking assessment comments: smokes only 2-3 cigarettes a day now Alcohol intake: never Substance use: current Substance use type: prescription drug Spiritual care concerns: No <Randi Nguyen PA-C - Last Filed: 02/04/24 09:51> Exam Narrative: GENERAL: Well-appearing, well-nourished, and in no acute distress. HEAD: Normocephalic, atraumatic. EYES: EOMI. CHEST: No respiratory distress. HEART: Regular rate EXTREMITIES: Normal range of motion. No edema. SKIN: Warm, dry, no rash. NEURO: No focal deficits. Alert and oriented x3. PSYCH: Flat mood and affect <Radni Nguyen PA-C - Last Filed: 02/04/24 09:51> Course Course Emergency Course: Patient medically cleared for evaluation by crisis <Randi Nguyen PA-C - Last Filed: 02/04/24 09:51> GREENHOUSE TRANSPLANTER/PA Physician Supervision For this patient encounter, I reviewed the GREENHOUSE TRANSPLANTER or PA documentation, treatment plan, and medical decision making and had [id number] time with this patient. I performed all aspects of the MDM as documented. <Jer Nathan MD - Last Filed: 02/03/24 07:41> Vital Signs Vital s
[2024-02-02 23:09] LABS: Bilirubin Urine Negative (Negative); Blood Urine Trace-intact (Negative); Glucose Urine UA 1+ mg/dL (Negative); Ketones Urine Negative (Negative); Leukocyte Esterase Ur Negative LEU/UL (Negative); Nitrate Urine Negative (Negative); Protein Urine Negative (Negative); Specific Grav Ur 1.015 (1.001-1.035)
[2024-02-02 23:10] LABS: SARS-CoV-2 RNA PCR Negative (Negative)
[2024-02-02 23:36] LABS: Ethanol 91 mg/dL (<10)
[2024-02-02 23:47] LABS: Amphetamine Screen Urine Negative (Negative); Barbiturate Screen Urine Negative (Negative); Benzodiazepines Screen Urine Negative (Negative); Cannabinoid Screen Urine Positive (Negative); Cocaine Screen Urine Negative (Negative); Methadone Screen Urine Negative (Negative); Opiate Screen Urine Positive (Negative); Phencyclidine Screen Urine Negative (Negative)
--- NOTE | 2024-02-03 00:51 | PC.NURSE ---
Pt medically cleared. Crisis contacted.
[2024-02-03 04:49] VITALS: BP 140/72; PULSE 98; RESP 18; O2SAT 97
--- NOTE | 2024-02-03 11:14 | PC.NURSE ---
Pt to desk crying stating he is extremely anxious and stressed. Pt has been here discharged since 0300 today. This RN attempted to call pts mom and grandma with no answer. Then pts grandma called back and states unable to pick pt up. Case Coordination involved to get pt a cab voucher home.
== END 2024-02-03 04:54 | disposition home or self-care (01) ==
PROVIDERS: Emergency Provider Emergency Medicine; PCP Physician Assistant
DX: R45.851 Suicidal ideations (principal); Z11.52 Encounter for screening for COVID-19; C71.9 Malignant neoplasm of brain, unspecified; F17.210 Nicotine dependence, cigarettes, uncomplicated; Z79.899 Other long term (current) drug therapy
CPT/HCPCS: 36415; 80053; 80307; 81001; 84443; 85025; 87635; 99284; A9270

== ENCOUNTER 2024-03-14 23:57 | Emergency (ER) | payer OTHER, MEDICARE, MEDICAID, SELFPAY ==
--- NOTE | ~2024-03-14 | CT_ITS ---
EXAMINATION: CT brain wo con DATE: 03/15/2024 01:15 INDICATION: Headache. Fall. TECHNIQUE: Computed tomography (CT) of the head was performed without intravenous contrast. The mA wa s adjusted according to patient size. Iterative reconstruction technique was employed. The dose-lengt h product was 605.33 mGy-cm. COMPARISON: None. FINDINGS: There is a resection cavity in left frontal lobe with surrounding vasogenic edema with focu s of gas from recent surgery. There is extra-axial fluid overlying the resection cavity with maximum thickness of 4 mm. There is no acute intracranial hemorrhage, abnormal mass lesion, or acute ischemic infarct. The ventricles are normal in size. There is mild mucosal thickening in the ethmoid sinuses. The orbits are normal. The mastoid air cells are normal. IMPRESSION: 1. Resection cavity in left frontal lobe with surrounding vasogenic edema. Reviewed, dictated and finalized at location A.
[2024-03-14 23:52] VITALS: BP 100/63; PULSE 86; RESP 12; TEMP 36.8; O2SAT 98
[2024-03-15] VITALS (19 sets, daily range): BP systolic 90–102; BP diastolic 58–61; PULSE 59–83; RESP 12–13; O2SAT 96–100
[2024-03-15 00:27] LABS: Basophils Absolute Auto 0.1 K/mm3 (0.0-0.1); Basophils Percent Auto 0.7 % (0.2-1.2); Eosinophils Absolute Auto 0.4 K/mm3 (0-0.3); Eosinophils Percent Auto 3.6 % (0-4.4); Hematocrit 42.8 % (42.0-52.0); Hemoglobin 14.3 g/dL (14.0-18.0); Immature Granulocyte Absolute 0.12 K/mm3 (0.00-0.031); Immature Granulocyte Percent A 1.2 % (0-0.5); Lymphocytes Absolute Auto 2.15 K/mm3 (0.9-3.2); Lymphocytes Percent Auto 20.9 % (18.3-44.2); Mean Corpuscular HGB Conc 33.4 g/dl (32-36); Mean Corpuscular Hemoglobin 31.8 pg (26-34); Mean Corpuscular Volume 95.3 fl (80-100); Mean Platelet Volume 8.8 fl (7.4-10.4); Monocytes Absolute Auto 1.1 K/mm3 (0.1-0.6); Monocytes Percent Auto 10.7 % (2.6-8.5); Neutrophils Absolute Auto 6.5 K/mm3 (1.3-6.7); Neutrophils Percent Auto 62.9 % (45.5-73.1); Platelet Count Result 355 k/mm3 (150-375); Red Blood Count 4.49 M/mm3 (4.6-6.20); Red Cell Distribution Width 13.5 % (11.5-14.5); White Blood Count 10.3 K/mm3 (4.5-10.0)
[2024-03-15 00:38] LABS: Alanine Aminotransferase 494 U/L (6-50); Albumin Level 4.7 g/dL (3.5-5.1); Alkaline Phosphatase 71 U/L (38-126); Anion Gap 5 mmol/L (4-12); Aspartate Amino Transferase 137 U/L (17-59); Bilirubin,Total 0.7 mg/dL (0.2-1.3); Blood Urea Nitrogen 22 mg/dL (9-20); Calcium 9.9 mg/dL (8.4-10.2); Carbon Dioxide 32 mmol/L (22-30); Chloride 99 mmol/L (98-107); Estimated Glomerular Filt Rate > 60; Glucose 100 mg/dL (65-110); Potassium 4.8 mmol/L (3.4-5.0); Sodium 136 mmol/L (137-145)
[2024-03-15 00:55] LABS: Alveolar/Arterial O2 Gradient < 0.0 mmHg; Base Excess ABG 5.5 mEq/l (+/-2.0); Fractional Inspired Oxygen 21 %; HCO3 ABG 31.5 mEq/l (22.0-26.0); Oxygen Content ABG 20.3 %vol (16.0-22.0); Oxygen Saturation ABG 97.8 % (95.0-100.0); Oxyhemoglobin 96.9 % THb (90.0-100.0); PCO2 ABG 51.5 mmHg (35.0-45.0); PO2 ABG 105.2 mmHg (80.0-100.0); PO2 FiO2 Ratio Arterial Blood 5.01 %; Total Hemoglobin 14.8 g/dL (12.0-18.0); pH ABG 7.405 (7.350-7.450)
[2024-03-15 00:57] LABS: Modified Allen's Test Pass; Site Drawn RIGHT RADIAL
[2024-03-15 00:58] LABS: Device NASAL CANNULA
--- NOTE | 2024-03-15 01:00 | PC.NURSE ---
Patient taken to CT via stretcher at this time.
[2024-03-15 01:03] LABS: Lactic Acid Reflex 0.6 mmol/L (0.7-2.0)
--- NOTE | 2024-03-15 02:30 | PC.NURSE ---
ERP requested urine sample, gave VORB to perform straight cath. Patient drowsy but refusing straight cath. Patient informed of need for urine specimen, urinal at bedside. Patient did acknowledge need for urine specimen, as well as acknowledge urinal at bedside. Call light within reach.
--- NOTE | 2024-03-15 02:51 | PC.NURSE ---
Patients mother contacted at [phone] to give update. Patients mother states patient has been slow to respond, tired and kind of delayed when you speak to him. He has been that way since his surgery a week and a half ago. Patients mother also spoke with ERP for update.
--- NOTE | 2024-03-15 03:17 | ED.GENADULT ---
HPI - General Adult General Chief complaint: Fall Stated complaint: fall, head trauma Time Seen by Provider: 03/14/24 23:59 History of Present Illness HPI narrative: Patient 28-year-old gentleman who presents emergency department with chief complaint of headache and head pain. Patient had a fall at rehab and reports that also had recent surgery for a tumor in his brain. Patient has been seen recently at [facility] where he had surgery at patient is somewhat drowsy and slow to answer question Related Data Home Medications Medication Instructions Recorded Confirmed escitalopram oxalate 10 mg tablet 20 mg PO DAILY 08/01/21 03/08/24 (Lexapro) gabapentin 600 mg tablet 1,800 mg PO TID 08/01/21 03/08/24 buspirone 10 mg tablet 10 mg PO BID 03/05/24 03/05/24 clonazepam 0.5 mg tablet (Klonopin) 0.5 mg PO DAILY PRN Anxiety 03/05/24 03/05/24 dexamethasone 4 mg tablet 4 mg PO BID 03/05/24 03/05/24 levetiracetam 1,000 mg tablet 1,000 mg PO BID 03/05/24 03/05/24 (Keppra) mirtazapine 15 mg tablet (Remeron) 7.5 mg PO HS 03/05/24 03/05/24 naloxone 4 mg/actuation nasal 1 spray intranasal Q2M PRN opiod 03/05/24 03/05/24 spray (Narcan) reversal polyethylene glycol 3350 17 gram 17 g PO PRN constipation 03/05/24 03/05/24 oral powder packet rimegepant 75 mg disintegrating 75 mg PO BID 03/05/24 03/05/24 tablet (Nurtec ODT) sennosides 8.6 mg-docusate sodium 8.6 tablet PO BID PRN Constipation 03/05/24 03/05/24 50 mg tablet (Senokot-S) trazodone 100 mg PO HS 03/05/24 03/05/24 Allergies Allergy/AdvReac Type Severity Reaction Status Date / Time Sulfa (Sulfonamide Allergy Unknown Diarrhea Verified 02/02/24 22:31 Antibiotics) tramadol Allergy Hives Verified 03/14/24 12:35 morphine AdvReac Agitated Verified 03/14/24 12:35 Review of Systems Review of Systems: A 10 system review of systems was completed on the patient and is negative except for what is stated in the HPI. Nursing and ancillary documentation was reviewed. [facility] Past Medical History Medical History Malignant neoplasm of frontal lobe Family History Family History Grandparent Hypertension Family history of heart disease in male family member before age 55 Social History Social History Smoking packs per day: 1 Smoking cigarettes per day: 20.0 Years smoked: 5 Smoking pack-years: 5.00 Smoking status: Former smoker Tobacco type: cigarettes Smoking end date: 02/27/24 Additional smoking assessment comments: smokes only 2-3 cigarettes a day now Alcohol intake: unknown Substance use: unknown Substance use type: prescription drug Do You Feel Safe in your Home?: Yes Lack of Transportation: No Lack of Food: Never True Current Housing: I Have Housing Concerned About Future Housing: No Difficulty Paying Gas/Electric Bills: No Difficulty Paying for Meds: No Currently Unemployed: Decline to Answer Education: Decline to Answer Difficulty w/ Childcare or Family Care: No Spiritual care concerns: No Exam Narrative: GENERAL: Well-appearing, well-nourished, and in no acute distress. HEAD: Normocephalic, atraumatic. EYES: PERRLA and EOMI. ENT: Nares clear, no rhinorrhea or epistaxis. Mucous membranes moist. NECK: Supple. CHEST: Clear to auscultation. No respiratory distress. HEART: Regular rate and rhythm. No murmur heard. Normal peripheral pulses. ABDOMEN: Soft, nontender, nondistended, normal active bowel sounds. EXTREMITIES: Normal range of motion. No edema. SKIN: Warm, dry, no rash. NEURO: No focal deficits. Alert and oriented x3. PSYCH: Normal mood and affect. Course Vital Signs Vital signs: Vital Signs Temperature 36.8 C 03/14/24 23:52 Pulse Rate 86 03/14/24 23:52 Respiratory Rate 12 03/14/24 23
--- NOTE | 2024-03-15 03:49 | PC.NURSE ---
0348 Called report to ANSIM hTrasher at [facility]. 0349 Called patients mother Mary to give update and state patient is to follow up with neuro at [facility] and is to be transferred back to the [facility].
== END 2024-03-15 04:18 ==
PROVIDERS: Emergency Provider Emergency Medicine; PCP Physician Assistant
DX: S09.90XA Unspecified injury of head, initial encounter (principal); C71.1 Malignant neoplasm of frontal lobe; Z98.890 Other specified postprocedural states; F17.210 Nicotine dependence, cigarettes, uncomplicated; W06.XXXA Fall from bed, initial encounter
CPT/HCPCS: 36415; 36600; 70450; 80053; 82805; 83605; 85025; 99284

== ENCOUNTER 2024-05-14 09:54 | Emergency (ER) | payer MEDICARE, MEDICAID, SELFPAY ==
--- NOTE | ~2024-05-14 | XR_ITS ---
EXAMINATION: XR ankle LT min 3V DATE: 05/14/2024 10:40 INDICATION: Left ankle pain. Injury. TECHNIQUE: 4 views of left ankle were obtained. COMPARISON: Left ankle radiographs 05/14/2024 FINDINGS: There are small foci of ossification distal to medial and lateral malleoli. Joint spaces ar e normal. There is ankle soft tissue swelling. IMPRESSION: 1. Small foci of ossification distal to medial and lateral malleoli which may be acute avulsion fract ures or chronic findings. Reviewed, dictated and finalized at location E. IMPRESSION: 1. Small foci of ossification distal to medial and lateral malleoli which may b e acute avulsion fractures or chronic findings.
--- NOTE | ~2024-05-14 | XR_ITS ---
EXAMINATION: XR foot LT min 3V DATE: 05/14/2024 10:40 INDICATION: Left foot injury and pain. TECHNIQUE: 4 views of left foot were obtained. COMPARISON: None. FINDINGS: There is a fracture deformity of head of first proximal phalanx with impaction of the artic ular surface. Joint spaces are normal. IMPRESSION: 1. Age-indeterminate fracture deformity of head of first proximal phalanx. Reviewed, dictated and finalized at location E.
[2024-05-14 10:03] VITALS: BP 125/64; PULSE 97; RESP 16; TEMP 37.2; O2SAT 98
--- NOTE | 2024-05-14 10:24 | ED.LOWEXIN ---
HPI - Extremity Injury (Lower) General Chief Complaint: Extremity Injury, Lower Stated Complaint: left ankle injury Time Seen by Provider: 05/14/24 09:59 Source: patient Mode of arrival: wheelchair Limitations: no limitations History of Present Illness HPI Narrative: This is a 28 year old male that presents to the ER for left foot and ankle pain. Reports he got it caught in his wheelchair yesterday. Reports lacerations to the fifth toe and bruising. Reports pain to the ankle with decreased ROM. Denies numbness. Related Data Home Medications Medication Instructions Recorded Confirmed escitalopram oxalate 10 mg tablet 20 mg PO DAILY 08/01/21 03/08/24 (Lexapro) gabapentin 600 mg tablet 1,800 mg PO TID 08/01/21 03/08/24 buspirone 10 mg tablet 10 mg PO BID 03/05/24 03/05/24 clonazepam 0.5 mg tablet (Klonopin) 0.5 mg PO DAILY PRN Anxiety 03/05/24 03/05/24 dexamethasone 4 mg tablet 4 mg PO BID 03/05/24 03/05/24 levetiracetam 1,000 mg tablet 1,000 mg PO BID 03/05/24 03/05/24 (Keppra) mirtazapine 15 mg tablet (Remeron) 7.5 mg PO HS 03/05/24 03/05/24 naloxone 4 mg/actuation nasal 1 spray intranasal Q2M PRN opiod 03/05/24 03/05/24 spray (Narcan) reversal polyethylene glycol 3350 17 gram 17 g PO PRN constipation 03/05/24 03/05/24 oral powder packet rimegepant 75 mg disintegrating 75 mg PO BID 03/05/24 03/05/24 tablet (Nurtec ODT) sennosides 8.6 mg-docusate sodium 8.6 tablet PO BID PRN Constipation 03/05/24 03/05/24 50 mg tablet (Senokot-S) trazodone 100 mg PO HS 03/05/24 03/05/24 Allergies Allergy/AdvReac Type Severity Reaction Status Date / Time Sulfa (Sulfonamide Allergy Unknown Diarrhea Verified 05/14/24 10:11 Antibiotics) Review of Systems Review of Systems: CONSTITUTIONAL: Denies fever SKIN: Reports laceration MUSCULOSKELETAL: Reports joint pain, and myalgia. NEUROLOGIC: Denies numbness All systems reviewed & are unremarkable except as noted in HPI and below PMFSH Past Medical History Medical History Malignant neoplasm of frontal lobe Family History Family History Grandparent Hypertension Family history of heart disease in male family member before age 55 Social History Social History Smoking packs per day: 1 Smoking cigarettes per day: 20.0 Years smoked: 5 Smoking pack-years: 5.00 Smoking status: Former smoker Tobacco type: cigarettes Smoking end date: 02/27/24 Additional smoking assessment comments: smokes only 2-3 cigarettes a day now Alcohol intake: unknown Substance use: unknown Substance use type: prescription drug Do You Feel Safe in your Home?: Yes Lack of Transportation: No Lack of Food: Never True Current Housing: I Have Housing Concerned About Future Housing: No Difficulty Paying Gas/Electric Bills: No Difficulty Paying for Meds: No Currently Unemployed: Decline to Answer Education: Decline to Answer Difficulty w/ Childcare or Family Care: No Spiritual care concerns: No Exam Narrative: GENERAL: Well-appearing, well-nourished, and in no acute distress. HEAD: Normocephalic, atraumatic. EYES: EOMI. EXTREMITIES: Normal range of motion in the foot. Decreased active ROM in the ankle due to pain. Mild edema about the left lateral malleoli. Normal DP pulse. Superficial skin tears over the left 5th toe with bruising SKIN: Warm, dry, no rash. NEURO: No focal deficits. Alert and oriented x3. PSYCH: Normal mood and affect Course Course Emergency Course: Patient updated on his workup and agrees with plan of care Vital Signs Vital signs: Vital Signs Temperature 99.0 F 05/14/24 10:03 Pulse Rate 97 05/14/24 10:03 Respiratory Rate 16 05/14/24 10:03 Blood Pressure 125/64 05/14/24 10:03 Pulse Oximetry 98 05/14/24 10:03 Oxygen Deli
[2024-05-14] MEDS: TETANUS,DIPHTHERIA,AC PERTUSSIS ADULT (0.5 ML) BOOSTRIX IM (10:39)
[2024-05-14] MEDS: HYDROcodone/acetaminophen (*CRX) 5-325 MG TABLET 1 TAB PO (11:21)
[2024-05-14] MEDS: levETIRAcetam 250 MG TABLET PO (11:21)
== END 2024-05-14 12:10 | disposition home or self-care (01) ==
PROVIDERS: Emergency Provider Physician Assistant
DX: S92.502A Displaced unspecified fracture of left lesser toe(s), initial encounter for closed fracture (principal); S82.62XA Displaced fracture of lateral malleolus of left fibula, initial encounter for closed fracture; Z23 Encounter for immunization; C71.1 Malignant neoplasm of frontal lobe; G62.9 Polyneuropathy, unspecified; F17.210 Nicotine dependence, cigarettes, uncomplicated; Z79.899 Other long term (current) drug therapy; W23.0XXA Caught, crushed, jammed, or pinched between moving objects, initial encounter
CPT/HCPCS: 29515; 73610; 73630; 90471; 90715; 99284; A9270

== ENCOUNTER 2024-10-30 12:01 | Emergency (ER) | payer MEDICARE, MEDICAID, SELFPAY ==
--- NOTE | ~2024-10-30 | XR_ITS ---
XR chest 2V 10/30/2024 12:59 Indication: Productive cough Procedure: 2 view chest Comparison: 12/20/2018 Findings: There are left lower lobe infiltrates, consistent with pneumonia. No pleural effusion, irvin a or pneumothorax. Heart size normal. Right lung clear. Impression: 1: Left lower lobe infiltrates, consistent with pneumonia. Reviewed, dictated and finalized at location B. 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
[2024-10-30 12:21] VITALS: BP 130/71; PULSE 85; RESP 18; TEMP 37; O2SAT 100
[2024-10-30 13:00] LABS: EDCOVIDSCREEN Negative (Negative); EDINFLUASCREEN Negative (Negative); EDINFLUBSCREEN Negative (Negative)
--- NOTE | 2024-10-30 13:12 | ED.URI ---
HPI - URI/Sore Throat General Chief Complaint: Upper Respiratory Infection Stated Complaint: cough Time Seen by Provider: 10/30/24 13:00 History of Present Illness HPI Narrative: patient presents with complaints of productive cough for a couple of days. He reports associated malaise, body aches. He denies fever. Patient is being treated for brain cancer, last chemo 1 week ago. Of note, he has been around his mother who was recently diagnosed and treated for pneumonia Related Data Home Medications ?Medication ?Instructions ?Recorded ?Confirmed ?Last Taken ?Type levetiracetam 1,000 mg tablet 1,000 mg PO BID 03/05/24 03/05/24 03/05/24 09:00 History (Keppra) naloxone 4 mg/actuation nasal 1 spray intranasal Q2M PRN opiod 03/05/24 03/05/24 Unknown History spray (Narcan) reversal ondansetron HCl 4 mg tablet 4 mg PO Q8H 05/20/24 Unknown History pregabalin 100 mg capsule 100 mg PO BID 05/20/24 Unknown History Allergies Allergy/AdvReac Type Severity Reaction Status Date / Time Sulfa (Sulfonamide AdvReac Unknown Diarrhea Verified 10/30/24 12:26 Antibiotics) Review of Systems Review of Systems: All systems reviewed & are unremarkable except as noted in HPI and below Constitutional: Constitutional: Reports no additional constitutional complaints, Reports headache(s), Reports lethargy and Reports weakness ENT: Reports system reviewed and no additional complaints, except as documented and Reports sore throat Cardiovascular: Cardiovascular: Reports no additional cardiovascular complaints Respiratory: Respiratory: Reports no additional respiratory complaints, Reports chest congestion, Reports cough, Reports excessive phlegm production and Reports pain with cough Gastrointestinal: Gastrointestinal: Reports no additional gastrointestinal complaints [facility] Past Medical History Medical History (Updated 10/30/24 @ 13:28 by Catherine Gutierres APRN) Back pain Floaters Brain cancer Malignant neoplasm of frontal lobe Surgical History Surgical History History of brain surgery x2 Family History Family History Grandparent Hypertension Family history of heart disease in male family member before age 55 Social History Social History Smoking packs per day: 1 Smoking cigarettes per day: 20.0 Years smoked: 5 Smoking pack-years: 5.00 Smoking status: Current every day smoker Tobacco type: cigarettes Additional smoking assessment comments: smokes only 2-3 cigarettes a day now Alcohol intake: current Drinks per week: 2 Substance use: current Substance use type: marijuana Other substance usage details: has medical marijuana card Do You Feel Safe in your Home?: Yes Lack of Transportation: No Lack of Food: Often True Current Housing: I Have Housing Concerned About Future Housing: No Difficulty Paying Gas/Electric Bills: YES Difficulty Paying for Meds: YES Currently Unemployed: YES Education: High School Diploma/GED Difficulty w/ Childcare or Family Care: No Living arrangements: alone Occupation/Education: unemployed Spiritual care concerns: No Exam Const: General: cooperative, no acute distress, alert, awake, tired appearing and uncomfortable Orientation/consciousness: oriented to person, oriented to place and oriented to time HENMT: Head: normal to inspection Ears: TM's normal bilaterally Resp: Effort & Inspection: normal respiratory effort and able to speak in complete sentences Auscultation: clear to auscultation bilaterally, no crackles, no rales, no rhonchi, wheezes and diminished lung sounds bilateral Cardio: Palpation: normal PMI Rate: regular rate Rhythm: regular rhythm Heart sounds: S1 normal heart sound present and S2 normal heart sound present Neuro: General: oriented to person, oriented to place and oriented to time Cranial nerves: Yes CN's II-XII intact bilaterally Psych: Appearance: grossly normal Thought process: Normal thought process present Insight: Good insight present (Psych) Judgement: Good judgement present (Psych) Course Course Level of Care: Express Care Visit Vital Signs Vital signs: Vital Signs Temperature 98.6 F 10/30/24 12:21 Pulse Rate 85 10/30/24 12:21 Respiratory Rate 18 10/30/24 12:21 Blood Pressure 130/71 10/30/24 12:21 Pulse Oximetry 100 10/30/24 12:21 Oxygen Delivery Room Air 10/30/24 12:21 Temperature 98.6 F 10/30/24 12:21 Pulse Rate 85 10/30/24 12:21 Respiratory Rate 18 10/30/24 12:21 Blood Pressure 130/71 10/30/24 12:21 Pulse Oximetry 100 10/30/24 12:21 Oxygen Delivery Room Air 10/30/24 12:21 MDM - URI/Sore Throat MDM Narrative Medical decision making narrative: immunocompromised patient with left lower lobe pneumonia. Stable vital signs, appears uncomfortable, but nontoxic. Strict emergency department precautions discussed with patient. He is stable for discharge home a p.o. antibiotics, steroids, bronchodilator. Discharge instructions reviewed with patient, as well as provided in writing per nursing staff. The instructions also include specific and strict return/GO TO THE ER as well as f/u information. All questions have been answered, and the patient deny any further questions with discharge and discharge plan. Some parts of this dictation were generated by voice recognition software and may contain typographical and/or grammatical inaccuracies. Differential Diagnosis Differential diagnosis: Likely upper respiratory infection, otitis media, sinusitis, viral infection, bronchitis, influenza and pharyngitis Medical Records Attestation: I reviewed the patient's medical records. Lab Data Attestation: I reviewed the patient's lab results. Labs: Lab Results 10/30/24 Range/Units 12:59 POC Influenza A Ag Negative (Negative) POC Influenza B Ag Negative (Negative) POC SARS CoV-2 Ag Negative (Negative) Imaging Data Attestation: I personally reviewed and interpreted this imaging study as follows: My impression: LLL christiano Radiologist's impression: [address] [address] XRay Report Signed Patient: Abelardo Giron : 1995 MR#: [id number] Age: 29 Acct:[id number] Loc: [facility] ADM Date: 10/30/24Attending Dr: Ordering Physician: Catherine Gutierres FNP Date of Service: 10/30/24 Procedure(s): XR chest 2V Accession Number(s): [id number] cc: Catherine Gutierres FNP; Low, Cheli Drummond PA-C~ XR chest 2V 10/30/2024 12:59 Indication: Productive cough Procedure: 2 view chest Comparison: 12/20/2018 Findings: There are left lower lobe infiltrates, consistent with pneumonia. No pleural effusion, edema or pneumothorax. Heart size normal. Right lung clear. Impression: 1: Left lower lobe infiltrates, consistent with pneumonia. Reviewed, dictated and finalized at location B. 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 Follow with primary care provider. Emergency department for new or worse symptoms Patient Language: Malagasy Prescriptions: New doxycycline hyclate 100 mg tablet 100 mg PO BID Qty: 20 0RF prednisone 50 mg tablet 50 mg PO DAILY Qty: 5 0RF albuterol sulfate [Ventolin HFA] 90 mcg/actuation HFA aerosol inhaler 2 puff inhalation QID PRN (Reason: shortness of breath or wheezing) Qty: 8.5 0RF No Action pregabalin 100 mg capsule 100 mg PO BID ondansetron HCl 4 mg tablet 4 mg PO Q8H levetiracetam [Keppra] 1,000 mg Tablet 1,000 mg PO BID Rx Instructions: x 6 days naloxone [Narcan] 4 mg/actuation [place],Non-Aerosol 1 spray INTRANASAL Q2M PRN (Reason: opiod reversal) Rx Instructions: spray 1 dose into ONE nostril; alternate nostrils w each dose until help arrives Follow-up/Referrals: Low,LOUIS Boyd [Primary Care Provider] - 1 Week Stand Alone Forms: Work/School Release IP Time of Disposition: 13:28
== END 2024-10-30 13:40 | disposition home or self-care (01) ==
PROVIDERS: Emergency Provider Nurse Practitioner Family; PCP Physician Assistant
DX: J18.9 Pneumonia, unspecified organism (principal); Z20.822 Contact with and (suspected) exposure to COVID-19; C71.1 Malignant neoplasm of frontal lobe; F17.210 Nicotine dependence, cigarettes, uncomplicated; F12.90 Cannabis use, unspecified, uncomplicated
CPT/HCPCS: 71046; 87426; 87804; 99213; G0463